=== PATIENT | male | born 1935 | race Caucasian/White ===

== ENCOUNTER 2016-10-05 10:58 | Emergency (ER) | payer OTHER ==
--- NOTE | 2016-10-05 11:37 | PROVIDER DOCUMENTATION ---
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 Tylenol Cognitive Baseline: poor alertness Modifying Factors: improves with: nothing Associated Symptoms: reports: denies symptoms Recently seen or treated by another doctor?: No - Glascow Coma Score Best Eye Response ([place]): (2) open to pain Best Verbal Response ([place]): (1) no verbal response Best Motor Response ([place]): (4) withdraws to pain [place] Total: 7 <Austin Wen - Last Filed: 10/05/16 14:07> <Violetta Herrera - Last Filed: 10/05/16 15:24> - General Chief Complaint: Fever Stated Complaint: Fever,Poss Sepsis Time Seen by Provider: 10/05/16 11:03 Allergies/Adverse Reactions: Patient Allergies Allergy/AdvReac Type Severity Reaction Status Date / Time codeine [Codeine] Allergy Unknown NAUSEA/VOMI Verified 10/05/16 11:28 TING levofloxacin [From Levaquin] Allergy Unknown NAUSEA/VOMI Verified 10/05/16 11:28 TING aspirin AdvReac Severe esophageal Verified 10/05/16 11:28 irritation Home Medications: Home Medication List Medication Instructions Recorded Confirmed Last Taken Type Folic Acid 1 mg PO BID #0 tablet 04/10/12 10/05/16 10/05/16 Rx Levalbuterol HCl [Xopenex] 0.63 mg IH BID #0 ml 04/10/12 10/05/16 09/05/16 20: 00 Rx Carvedilol [Coreg] 12.5 mg PO BID #0 tablet 08/21/15 10/05/16 10/05/16 Rx Pantoprazole [Protonix] 40 mg PO BID #60 tablet 08/21/15 10/05/16 10/05/16 Rx Epoetin Thee [Procrit] 20,000 unit IJ DIRECTED 09/12/15 10/05/16 09/05/16 08: 00 History Iron Fum,Ps/FA/Vit B with C #9 1 each PO DAILY 09/12/15 10/05/16 10/05/16 History [Integra Plus Capsule] Cyanocobalamin (Vitamin B-12) 1,000 mcg PO DAILY 09/07/16 10/05/16 10/05/16 History [Vitamin B-12] Ergocalciferol (Vitamin D2) 1 cap PO SENIOR DIRECTOR MARKETING 09/07/16 10/05/16 10/05/16 History [Vitamin D2] Gabapentin [Neurontin] 1 cap PO BID 09/07/16 10/05/16 10/05/16 History - History of Present Illness-Fever Nature of Presenting Problem: 81 yo WM sent from [place]. Complex medical history with intracranial hemorrhage, ESRD. Only a few days in Rehab. His baseline mental status has not been established completely but seems to respond to painful stimuli at baseline. Began running fever, transferred to ER for evaluation. Had dialysis for 4 hours yesterday. (Austin Wen) Review of Systems - Adult - REVIEW OF SYSTEMS - ADULT ROS:: unobtainable per condition Constitutional: reports: fever Eyes: reports: no symptoms reported Ears, Nose, Mouth & Throat: reports: no symptoms reported Cardiovascular: reports: no symptoms reported Respiratory: reports: no symptoms reported Gastrointestinal: reports: no symptoms reported Genitourinary: reports: no symptoms reported Musculoskeletal: reports: no symptoms reported Integumentary: reports: no symptoms reported Psychiatric: reports: no symptoms reported Endocrine: reports: no symptoms reported Hematologic/Lymphatic: reports: no symptoms reported Allergic/Immunologic: reports: no symptoms reported All Other Systems: Reviewed and Negative <Austin Wen - Last Filed: 10/05/16 14:07> Past History - Adult - PAST MEDICAL HISTORY-ADULT Review of Records: reports: Old Records Reviewed, Nursing Assessment Review, Medications Reviewed, Social history reviewed & non-contributory. Major Childhood Illnesses: reports: denies history Cardiovascular: reports: arrhythmia, CAD, HTN Respiratory: reports: denies history Gastrointestinal: reports: denies history Obstetrical/Gynecological: reports: denies history Genitourinary: reports: denies history Musculoskeletal: reports: other (GOUT) Neurological: reports: other (neuropathy, ICH, ) Endocrine/Immune: reports: Diabetes Other Conditions: reports: denies history - PRIOR SURGERIES/PROCEDURES Surgical/Procedure History: reports: cholecystectomy, other (G-tube, vascath) - PRIOR HOSPITALIZATIONS Prior Hospitalizations: reports: for other non-related - IMMUNIZATION STATUS Childhood Immunizations: See Nurse Assessment Flu Vaccine: See Nurse Assessment - FAMILY HISTORY Family History: reviewed, not pertinent - SOCIAL HISTORY Smoking: non-smoker Substance Use: none/never Alcohol Use Frequency: never Living Situation: care facility <Austin Wen - Last Filed: 10/05/16 14:07> Physical Exam-General - PHYSICAL EXAM-ADULT Initial Vital Signs Reviewed: Yes - CONSTITUTIONAL General Appearance: obese, lethargic - EYES Eyes: PERRL/EOMI, other (dry mouth with material on buccal mucosa) - HEAD, EARS, NOSE, MOUTH & THROAT HENMT: normocephalic/atraumatic. negative: moist mucous membranes - NECK Neck: normal inspection - RESPIRATORY Respiratory: chest non-tender, lungs clear, normal breath sounds - CARDIOVASCULAR Cardiovascular: regular rate, rhythm, no edema - GASTROINTESTINAL (ABDOMEN) Abdominal Exam: tenderness (grimaces with palpatio of RUQ). negative: rigid, rebound - MUSCULOSKELETAL Back Exam: no CVA tenderness, no vertebral tenderness Extremity: no pedal edema, no calf tenderness - SKIN Integumentary: pallor - NEUROLOGIC Neurologic: other (opens eyes to sternal rub, grimaces with abd exam) <Austin Wen - Last Filed: 10/05/16 14:07> Progress - XRAY 1 XRAY Study: Chest Impression: Normal - CT/MRI 1 CT Study: Head Impression: Normal <Austin Wen - Last Filed: 10/05/16 14:07> - EKG 1 Time of EKG reading by physician:: 11:09 EKG Read and Signed by:: Austin Wen EKG Interpretation (*Must complete 3 of following elements*): Normal Rate: 85 Rhythm: sinus rhythm with 1st degree AV block <Violetta Herrera - Last Filed: 10/05/16 15:24> - PLAN OF CARE/RESULTS Progress/Plan/Lab Results: Vital Signs Temp Pulse Resp BP Pulse Ox 10/05/16 13:40 81 18 121/71 94 L 10/05/16 13:05 79 18 113/65 97 10/05/16 12:20 79 18 113/64 96 10/05/16 11:22 101/55 10/05/16 11:15 100.1 F H 86 19 88/53 97 codeine [Codeine] Allergy (Unknown, Verified 10/05/16 11:28) NAUSEA/VOMITING levofloxacin [From Levaquin] Allergy (Unknown, Verified 10/05/16 11:28) NAUSEA/VOMITING aspirin Adverse Reaction (Severe, Verified 10/05/16 11:28) esophageal irritation Folic Acid 1 mg PO BID #0 tablet 04/10/12 Levalbuterol HCl [Xopenex] 0.63 mg IH BID #0 ml 04/10/12 Carvedilol [Coreg] 12.5 mg PO BID #0 tablet 08/21/15 Pantoprazole [Protonix] 40 mg PO BID #60 tablet 08/21/15 Epoetin Thee [Procrit] 20,000 unit IJ DIRECTED 09/12/15 Iron Fum,Ps/FA/Vit B with C #9 [Integra Plus Capsule] 1 each PO DAILY 09/12/15 Cyanocobalamin (Vitamin B-12) [Vitamin B-12] 1,000 mcg PO DAILY 09/07/16 Ergocalciferol (Vitamin D2) [Vitamin D2] 1 cap PO SENIOR DIRECT[employer]ING 09/07/16 Gabapentin [Neurontin] 1 cap PO BID 09/07/16 Laboratory 10/05/16 10/05/16 10/05/16 12:00 11:17 11:17 WBC RBC Hgb Hct MCV MCH MCHC RDW Std Deviation Plt Count MPV Immature Gran % (Auto) Neut % (Auto) Lymph % (Auto) [place] % (Auto) Eos % (Auto) Baso % (Auto) Immature Gran # (Auto) Neut # (Auto) Lymph # (Auto) [place] # (Auto) Eos # (Auto) Baso # (Auto) PT INR PTT (Actin FS) Specimen Type ARTERIAL Sample Site R RADIAL pH 7.47 H pCO2 37 pO2 72 HCO3 27.3 H Base Excess 3.1 H Oxyhemoglobin 94.2 L ABG O2 Sat (Calculated) 11.5 L ABG O2 Saturation 96.6 ABG Carboxyhemoglobin 1.40 ABG Methemoglobin 1.1 Shaggy Test YES A-a O2 Difference 31.0 Total Hemoglobin 8.6 L Lactate 1.40 Blood Gas Modality ROOM AIR FiO2 % 21.0 Sodium Potassium Chloride Carbon Dioxide Anion Gap BUN Creatinine Estimated GFR/1.73 m2 BUN/Creatinine Ratio Glucose Calculated Osmolality Calcium Magnesium Total Bilirubin AST ALT Alkaline Phosphatase Troponin T 0.468 H* Total Protein Albumin Globulin Albumin/Globulin Ratio Plasma Lactate 1.4 10/05/16 10/05/16 10/05/16 11:17 11:17 11:17 WBC 12.32 H RBC 3.12 L Hgb 8.8 L Hct 27.0 L MCV 86.5 MCH 28.2 MCHC 32.6 L RDW Std Deviation 16.0 H Plt Count 405 H MPV 9.8 Immature Gran % (Auto) 0.3 Neut % (Auto) 81.6 H Lymph % (Auto) 7.1 L [place] % (Auto) 9.0 Eos % (Auto) 1.5 Baso % (Auto) 0.5 Immature Gran # (Auto) 0.04 Neut # (Auto) 10.05 H Lymph # (Auto) 0.88 L [place] # (Auto) 1.11 H Eos # (Auto) 0.18 Baso # (Auto) 0.06 PT 11.7 INR 1.10 PTT (Actin FS) 30.1 Specimen Type Sample Site pH pCO2 pO2 HCO3 Base Excess Oxyhemoglobin ABG O2 Sat (Calculated) ABG O2 Saturation ABG Carboxyhemoglobin ABG Methemoglobin Shaggy Test A-a O2 Difference Total Hemoglobin Lactate Blood Gas Modality FiO2 % Sodium 128 L Potassium 4.2 Chloride 88 L Carbon Dioxide 24 L Anion Gap 16 BUN 55 H Creatinine 4.5 H Estimated GFR/1.73 m2 13 BUN/Creatinine Ratio 12 Glucose 148 H Calculated Osmolality 275 Calcium 9.3 Magnesium 2.3 Total Bilirubin 0.25 AST 56 H ALT 45 H Alkaline Phosphatase 365 H Troponin T Total Protein 6.9 Albumin 2.7 L Globulin 4.2 Albumin/Globulin Ratio 0.6 Plasma Lactate Orders Category Date Time Status CHEST-PORTABLE [RAD] Stat Exams 10/05/16 11:18 Completed HEAD W/O CONTRAST [CT] Stat Exams 10/05/16 11:18 Completed ABG [RESP] Routine Lab 10/05/16 12:00 Completed BLOOD CULTURE [BLDCUL] Stat Lab 10/05/16 11:27 Results CBC WITH ELECTRONIC DIFF [HEME] Stat Lab 10/05/16 11:17 Completed COMPREHENSIVE METABOLIC PANEL [CHEM] Stat Lab 10/05/16 11:17 Completed Flu Swab [INFLUENZA SCREEN A/B] Stat Lab 10/05/16 13:05 Completed INFLUENZA SCREEN A/B Stat Lab 10/05/16 11:33 Completed LACTATE, PLASMA [CHEM] Stat Lab 10/05/16 11:17 Completed MAGNESIUM [CHEM] Stat Lab 10/05/16 11:17 Completed PROTIME WITH INR [COAG] Stat Lab 10/05/16 11:17 Completed PTT [COAG] Stat Lab 10/05/16 11:17 Completed TROPONIN T Stat Lab 10/05/16 11:17 Completed 0.9% Sodium Chloride Inj [Ns] 500 ml Med 10/05/16 11:53 Discontinued IV 999 mls/hr EKG [EKG] Stat Ther 10/05/16 11:18 Ordered (Austin Wen) Departure - Departure Time of Disposition Order: 13:45 Certified Medical Emergency: Emergent <Austin Wen - Last Filed: 10/05/16 14:07> <Violetta Herrera - Last Filed: 10/05/16 15:24> - Departure DIAGNOSIS: Fever and chills, History of cerebral hemorrhage Chronic renal failure Qualifiers: Chronic kidney disease stage: stage 5 Qualified Code(s): N18.5 - Chronic kidney disease, stage 5 Disposition: [facility] 03 Condition: Stable Referrals: Eda Ren MD [Primary Care Provider] - Instructions: Fever, Adult, Kidney Failure, [id number], Hemorrhagic Stroke Physician Attestation
[2016-10-05 11:42] LABS: MANUAL DIFF NEEDED? NO
[2016-10-05] MEDS ORDERED: NS 500 ML IV ONE (11:53)
[2016-10-05 11:59] LABS: INR 1.1; PROTIME 11.7 Seconds (9.2-11.7); PTT 30.1 Seconds (22.0-36.0)
[2016-10-05 12:09] LABS: BASO% 0.5 % (0.0-0.8); EOS# 0.18 X1000 (0.0-0.7); EOS% 1.5 % (0.0-10.0); HEMOGLOBIN 8.8 g/dL (14.0-18.0); IMM GRAN# 0.04 X1000 (0.0-0.04); IMM GRAN% 0.3 % (0.0-0.5); LYMPH# 0.88 X1000 (1.2-3.4); LYMPH% 7.1 % (20.5-51.1); MCH 28.2 PG (27-31); MCHC 32.6 g/dL (33-37); MCV 86.5 FL (81-99); MONO# 1.11 X1000 (0.11-0.59); MPV 9.8 FL (7.4-10.4); NEUT% 81.6 % (42.2-75.2); PLT 405 X1000 (130-400); RBC 3.12 XMIL (4.7-6.1)
[2016-10-05 12:10] LABS: ALBUMIN 2.7 g/dL (3.5-5.0); CALCIUM 9.3 mg/dL (8.8-10.2); MAGNESIUM 2.3 mg/dL (1.5-2.7); POTASSIUM 4.2 mmol/L (3.5-5.1); TOTAL BILIRUBIN 0.25 mg/dL (0.20-1.00); TOTAL PROTEIN 6.9 g/dL (6.3-8.3)
[2016-10-05 12:18] LABS: ALLEN TEST YES; BE 3.1 mmoll (-3.0-3.0); BLOOD TYPE ARTERIAL; DRAW SITE R RADIAL; METHB 1.1 % (0.0-1.5); O2(CT) 11.5 mL/dL (15.0-23.0); PCO2(98.6) 37 mmHg (35-45); PO2(98.6) 72 mmHg (60-100); SAMPLE BLOOD; SAO2 96.6 % (95.0-100.0); THB 8.6 g/dL (11.5-17.4); pH(98.6) 7.47 (7.35-7.45)
[2016-10-05 12:30] LABS: MODALITY ROOM AIR
--- NOTE | 2016-10-05 13:31 | Diag Imaging Result Document ---
PROCEDURE NAME: CHEST-PORTABLE - 10/05/2016 PORTABLE CHEST: COMPARISON: 07/10/2015. FINDINGS: Poor inspiratory effort. There is a double lumen right sided catheter. No pneumothorax. There are no infiltrates. The heart is not enlarged. The vessels are not distended. No pleural effusions. IMPRESSION: No pneumonia.
--- NOTE | 2016-10-05 13:54 | Diag Imaging Result Document ---
PROCEDURE NAME: HEAD W/O CONTRAST - 10/05/2016 CT BRAIN WITHOUT: COMPARISON: 09/09/2016. FINDINGS: Interval resolution of the interventricular hemorrhage and SAH. No parenchymal hemorrhage. No epidural or subdural hematoma. No subarachnoid hemorrhage. No mass identified on this noncontrasted exam. Ventricular prominence is similar to the prior study. No sinus opacification. IMPRESSION: 1. There is no hemorrhage on the current exam. 2. Mild atrophy with ventricular prominence. A preliminary report was given at 12:14 p.m. [facility]
[2016-10-05 16:04] VITALS: BP 121/68
--- NOTE | 2016-10-06 05:54 | EKG Report ---
Test Performed on : 10/05/2016 11:09:29 AM Test Reason : poss sepsis Blood Pressure : / mmHG Vent. Rate : 085 BPM Atrial Rate : 085 BPM P-R Int : 218 ms QRS Dur : 092 ms QT Int : 354 ms P-R-T Axes : 059 047 061 degrees QTc Int : 421 ms Sinus rhythm. with 1st degree AV block. Otherwise normal ECG When compared with ECG of 17-AUG-2015 14:43, No significant change was found Unconfirmed Result
== END 2016-10-05 16:13 ==
LOC: EDBD → ED 10:58
DX: I12.0 Hypertensive chronic kidney disease with stage 5 chronic kidney disease or end stage renal disease (principal); N18.6 End stage renal disease; R50.9 Fever, unspecified; R53.83 Other fatigue; R10.819 Abdominal tenderness, unspecified site; I25.10 Atherosclerotic heart disease of native coronary artery without angina pectoris; Z99.2 Dependence on renal dialysis; E11.40 Type 2 diabetes mellitus with diabetic neuropathy, unspecified; Z79.899 Other long term (current) drug therapy; Z86.79 Personal history of other diseases of the circulatory system; Z93.1 Gastrostomy status
CPT/HCPCS: 70450; 71010; 80053; 82805; 83605; 83735; 84484; 85025; 85610; 85730; 87040; 87804; 93005; J7040